=== PATIENT | female | born 1950 | race Two or more races ===

== ENCOUNTER 2023-03-01 06:27 | Day surgery (SDC) | payer OTHER ==
[~2023-03-01] VITALS: Ht 152.4 cm; Wt 61.2 kg
[~2023-03-01 06:27] MED LIST: ENALAPRIL MALEA10 MG PO; LIPITOR20 MG PO
== END 2023-03-02 02:09 | disposition home or self-care (01) ==
LOC: CIR.AMB 06:27
PROVIDERS: ATTEND Surgery
DX: D05.11 Intraductal carcinoma in situ of right breast (principal); R59.0 Localized enlarged lymph nodes; I10 Essential (primary) hypertension; Z20.822 Contact with and (suspected) exposure to COVID-19; E11.9 Type 2 diabetes mellitus without complications; Z79.4 Long term (current) use of insulin; Z88.6 Allergy status to analgesic agent
CPT/HCPCS: 19301; 38525; 38792; 19281; A9541; L8699

== ENCOUNTER 2023-04-15 10:20 | Emergency (ER) | payer OTHER ==
[~2023-04-15] VITALS: Ht 152.4 cm; Wt 61.2 kg
[2023-04-15] MEDS ORDERED: CEPHALEXIN500 M1 PO (10:40)
== END 2023-04-15 12:49 | disposition home or self-care (01) ==
LOC: ER 10:20
DX: N61.0 Mastitis without abscess (principal); Z88.6 Allergy status to analgesic agent

== ENCOUNTER 2023-04-26 12:18 | Outpatient (CLI) | payer OTHER ==
[~2023-04-26 12:18] MED LIST changes: +CEPHALEXIN500 M1 PO
== END 2023-04-26 12:22 | disposition home or self-care (01) ==
LOC: LAB 12:18
PROVIDERS: ATTEND Surgery
DX: N61.1 Abscess of the breast and nipple (principal); N61.0 Mastitis without abscess